=== PATIENT | male | born 1940 | race Caucasian/White ===

== ENCOUNTER 2016-10-31 19:30 | Emergency (ER) | payer MEDICARE ==
[2016-10-31] MEDS ORDERED: IOPAMIDOL 300 (61%) 150 ML VIAL IV ONE (19:31)
[2016-10-31 20:50] LABS: ABSOLUTE NEUTROPHIL COUNT 2.7 K/mm3 (1.8-7.7); BASO % 0.5 % (0.2-1.0); HEMATOCRIT 39.8 % (32.0-52.0); HEMOGLOBIN 13.3 gm/l (14.0-18.0); IMM NEUT% 0.2 % (0-1); LYMPH # 3.2 (1.0-4.8); LYMPH % 49.7 % (15-45); MEAN CELL VOLUME 94.3 fl (80.0-94.0); MEAN CORPUSCULAR HEMOGLOBIN 31.5 pg (27.0-31.0); MEAN CORPUSCULAR HGB CONC 33.4 g/dl (33.0-37.0); MEAN PLATELET VOLUME 9.9 fl (7.4-10.4); MONO # 0.5 (0.0-0.8); MONO % 7.3 % (4-12); NEUT % 42.3 % (43-75); PLATELET COUNT 200 K/mm3 (130-400)
[2016-10-31 21:02] LABS: ALB/GLOB RATIO 1.5 (>1.0); CALCIUM 8.9 mg/dL (8.6-10.3); MAGNESIUM 1.9 mg/dL (1.9-2.7)
[2016-10-31 21:09] LABS: TROPONIN I < 0.01 ng/ml (0.0-0.06)
[2016-10-31 21:11] LABS: URINE BILIRUBIN NEGATIVE (NEGATIVE); URINE BLOOD 1+ (NEGATIVE); URINE GLUCOSE (UA) NEGATIVE (NEGATIVE); URINE LEUKOCYTE ESTERASE NEGATIVE (NEGATIVE); URINE NITRITE NEGATIVE (NEGATIVE); URINE PROTEIN NEGATIVE (NEGATIVE); URINE UROBILINOGEN NORMAL (0-1 mg/dl)
[2016-10-31 21:13] LABS: CKMB ISOENZYME 4.6 ng/ml (0.6-6.3)
[2016-10-31 21:18] LABS: URINE COLOR YELLOW
[2016-10-31 21:19] LABS: URINE APPEARANCE CLEAR
[2016-10-31 21:33] LABS: URINE BACTERIA RARE; URINE EPITHELIAL CELLS 0-1 /hpf; URINE WBC NEG /hpf
--- NOTE | 2016-10-31 21:52 | CT ---
Name: ARSALAN DUTTON Exam: CT abdomen pelvis with contrast Comparison: 06/06/2007 History: Abdominal pain Procedure: Helical CT using multidetector technique was applied to the abdomen and pelvis during intravenous administration of 125 cc Isovue-300. No oral contrast was given per ordering physician. An automated dose reduction technique was used to minimize patient radiation dose. Findings: CT abdomen (contrast enhanced): Lung bases are clear. Heart is nonenlarged. There is no pericardial effusion. Coronary artery calcification is present. Fatty changes liver are normal. The gallbladder is unremarkable. There is no suspicious biliary dilation. Pancreas, spleen, adrenal glands, right kidney, IVC and portal vein are normal. There are 2, 3.3 cm and less left renal cysts. There is atherosclerosis of a normal caliber aorta. Small hiatal hernia is present. Small bowel and colon are normal. There is no free air, free fluid or suspicious adenopathy. 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 CT pelvis (contrast enhanced): Bladder is thick-walled but nearly empty. Prostate and seminal vesicles are normal. Sigmoid colon is mildly redundant but otherwise normal. Small bowel and appendix are normal. There is no free air, free fluid or suspicious adenopathy. Atherosclerotic calcifications are identified. Impression: 1. 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 Small hiatal hernia 3. Fatty infiltration liver 4. 3.3 cm and less left renal cysts 5. 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 Normal appendix. There is no small bowel obstruction 7. Mild diffuse atherosclerosis Note: The above report was uploaded to [facility]'s electronic medical records system at 2147 hours.
== END 2016-10-31 23:08 | disposition home or self-care (01) ==
LOC: ED 19:30
DX: R55 Syncope and collapse (principal); I10 Essential (primary) hypertension; W19.XXXA Unspecified fall, initial encounter; Y92.9 Unspecified place or not applicable